=== PATIENT | male | born 1935 | race Two or more races ===

== ENCOUNTER → 2017-06-24 | Outpatient (CLI) | payer MEDICARE | LOC: M PAIN 14:00 | DX: M51.26 Other intervertebral disc displacement, lumbar region (principal); M46.1 Sacroiliitis, not elsewhere classified; G20 Parkinson's disease; Z79.82 Long term (current) use of aspirin; Z79.899 Other long term (current) drug therapy; Z87.891 Personal history of nicotine dependence | CPT/HCPCS: G0463 ==

== ENCOUNTER → 2017-09-23 | Outpatient (CLI) | payer MEDICARE | LOC: M PAIN 09:30 | DX: M51.26 Other intervertebral disc displacement, lumbar region (principal); M46.1 Sacroiliitis, not elsewhere classified; M46.86 Other specified inflammatory spondylopathies, lumbar region; G20 Parkinson's disease; Z79.82 Long term (current) use of aspirin; Z79.899 Other long term (current) drug therapy; Z87.891 Personal history of nicotine dependence | CPT/HCPCS: G0463 ==

== ENCOUNTER → 2018-03-25 | Outpatient (CLI) | payer MEDICARE | LOC: M PAIN 09:00 | DX: M51.26 Other intervertebral disc displacement, lumbar region (principal); M46.1 Sacroiliitis, not elsewhere classified; G20 Parkinson's disease; Z79.82 Long term (current) use of aspirin; Z79.899 Other long term (current) drug therapy; Z87.891 Personal history of nicotine dependence | CPT/HCPCS: G0463 ==

== ENCOUNTER 2019-10-23 16:56 | Emergency (ER) | payer MEDICARE ==
[~2019-10-23] VITALS: Ht 177.8 cm; Wt 85.9 kg
[2019-10-23] MEDS ORDERED: MAGN400T2 PO (17:27)
[2019-10-23] MEDS ORDERED: ASPI81TA85 PO (17:27)
[2019-10-23] MEDS ORDERED: VITAD1000T PO (17:27)
[2019-10-23] MEDS ORDERED: CARB25TA9 (17:27)
[2019-10-23] MEDS ORDERED: MULT1TAB8 PO (17:27)
[2019-10-23] MEDS ORDERED: ATRO1OPD (17:27)
[2019-10-23] MEDS ORDERED: VITA500C24 PO (17:27)
[2019-10-23] MEDS ORDERED: KRIL1CAP10 PO (17:27)
[2019-10-23] MEDS ORDERED: MORPHINE 2 MG/ML 1ML VIAL (J2270) IV ONE (18:00)
[2019-10-23 19:02] LABS: BASO # 0.1 10^3/uL (0.0-0.2); BASO % 0.4 % (0.0-1.0); EOS % 0.3 % (0.0-3.0); HEMATOCRIT 47.3 % (42.0-52.0); HEMOGLOBIN 15.9 g/dl (13.5-17.5); LYMPH # 1.3 10^3/uL (1.5-5.0); LYMPH % 9.3 % (24.0-44.0); MEAN CORPUSCULAR HEMOGLOBIN 31.2 pg (27.0-33.0); MEAN CORPUSCULAR HGB CONC 33.6 g/dl (32.0-36.5); MEAN CORPUSCULAR VOLUME 92.9 fl (80.0-96.0); MONO % 6.9 % (0.0-5.0); NEUTROPHILS # 11.6 10^3/uL (1.5-8.5); NEUTROPHILS % 82.4 % (36.0-66.0); PLATELET COUNT, AUTOMATED 240 10^3/uL (150-450); RED BLOOD COUNT 5.09 10^6/uL (4.30-6.10); WHITE BLOOD COUNT 14.1 10^3/uL (4.0-10.0)
[2019-10-23] MEDS ORDERED: ISOVUE-370 76% 100ML VIAL As Ordered ONE (19:17)
[2019-10-23 19:28] LABS: ALBUMIN 3.7 GM/DL (3.2-5.2); ALT/SGPT 13 U/L (12-78); BILIRUBIN,DIRECT 0.2 MG/DL (0.0-0.2); BILIRUBIN,TOTAL 0.7 MG/DL (0.2-1.0); BLOOD UREA NITROGEN 24 MG/DL (7-18); CALCIUM LEVEL 8.6 MG/DL (8.8-10.2); CARBON DIOXIDE LEVEL 29 MEQ/L (21-32); CHLORIDE LEVEL 106 MEQ/L (98-107); CK-MB VALUE MASS 1.4 NG/ML (<3.6); CPK CREATINE PHOSPHOKINASE 104 U/L (39-308); CREATININE FOR GFR 1.26 MG/DL (0.70-1.30); GLOMERULAR FILTRATION RATE 58.3 (>35); GLUCOSE, FASTING 102 MG/DL (70-100); MB/CK RELATIVE INDEX 1.35 (< OR =4); POTASSIUM SERUM 4.9 MEQ/L (3.5-5.1); SODIUM LEVEL 140 MEQ/L (136-145); TROPONIN I < 0.02 NG/ML (< 0.10)
[2019-10-23 20:00] VITALS: BP 157/72
--- NOTE | 2019-10-24 21:03 | ECGEPIP ---
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
--- NOTE | 2019-10-25 11:27 | REP ---
RIGHT RIB SERIES: FIVE VIEWS INCLUDING PA CHEST. HISTORY: Injury in a fall. Preliminary report is provided at the time of the exam by Dr. Enriquez. FINDINGS: PA chest radiograph shows no evidence of pneumothorax or hydrothorax. Mediastinum is not traumatically widened. The aorta is calcific and slightly tortuous. There are monitoring electrodes. Pulmonary vasculature is not increased. Multiple views of the right ribcage demonstrate a slightly overriding fracture of the distal clavicle on the right. No other shoulder fracture is seen. There is a slightly displaced fracture of the posterior segment of the right 5th rib. A possible nondisplaced 6th rib fracture is seen. No other acute rib fracture is seen. IMPRESSION: Obliquely oriented fracture through the distal clavicle with override. Acute fracture of the right posterior 5th and possibly 6th ribs. Electronically Signed by Ilir Brannon MD 10/25/2019 04:53 P
--- NOTE | 2019-10-25 11:29 | REP ---
REASON FOR EXAM: Trauma. PRIORS: None. Preliminary report given by Dr. Enriquez at the time the exam was performed. Three views of the right shoulder show a comminuted distal clavicular fracture and the fracture involving the posterior aspect of the right 5th rib. The glenohumeral relationship is maintained. IMPRESSION: Clavicular and rib fracture, as described above. Electronically Signed by Morales Valdez DO 10/25/2019 11:55 A
== END 2019-10-23 21:24 | disposition home or self-care (01) ==
LOC: EDBD 16:56 → M ED 16:56
DX: S42.001A Fracture of unspecified part of right clavicle, initial encounter for closed fracture (principal); S22.31XA Fracture of one rib, right side, initial encounter for closed fracture; W18.39XA Other fall on same level, initial encounter; G20 Parkinson's disease; Z79.899 Other long term (current) drug therapy; Z79.82 Long term (current) use of aspirin

== ENCOUNTER → 2019-11-30 | Outpatient (CLI) | payer MEDICARE ==
[~2019-11-30] MED LIST: ASPI81TA85 PO; ATRO1OPD; CARB25TA9; KRIL1CAP10 PO; MAGN400T2 PO; MULT1TAB8 PO; VITA500C24 PO; VITAD1000T PO
--- NOTE | 2019-11-30 11:22 | REP ---
Right upper extremity duplex venous ultrasound: History: Status post a injury right arm and clavicle with swelling. Rule out DVT. Findings: The right internal jugular, axillary, brachial, basilic, and cephalic veins are anechoic and compressible in the left upper extremity. Color flow imaging is homogeneous. Spectral Doppler interrogation is unremarkable. There is no evidence of right upper extremity venous thrombosis. Impression: Negative right upper extremity duplex venous ultrasound. No evidence of venous thrombosis. Electronically Signed by Ilir Brannon MD 11/30/2019 11:14 A
== END ==
LOC: M RAD 07:44
PROVIDERS: ATTEND Orthopaedic Surgery
DX: M79.621 Pain in right upper arm (principal)

== ENCOUNTER 2019-12-04 15:14 | Emergency (ER) | payer MEDICARE ==
[~2019-12-04] VITALS: Ht 177.8 cm; Wt 86.4 kg
--- NOTE | 2019-12-04 16:40 | REP ---
Clinical: Right upper extremity pain and swelling with previous injury. Technique: [place] scale and color Doppler evaluation of the right upper extremity using linear high frequency transducer. Findings: Ultrasound examination of the right upper extremity deep venous structures including jugular, subclavian, axillary, brachial, basilic, and cephalic veins demonstrate normal flow characteristics and wave patterns. There is no evidence for deep venous thrombosis. Impression: No evidence for deep venous thrombosis involving the right upper extremity . Electronically Signed by Gil Enriquez MD 12/04/2019 04:31 P
[2019-12-04 16:49] VITALS: BP 138/70
== END 2019-12-04 17:06 | disposition home or self-care (01) ==
LOC: M ED 15:14
DX: M79.601 Pain in right arm (principal); R22.31 Localized swelling, mass and lump, right upper limb

== ENCOUNTER → 2020-10-09 | Outpatient (REF) | payer MEDICARE ==
[~2020-10-09] MED LIST changes: +ASPI-161 PO; -ASPI81TA85 PO; +ASPI81TA86 PO; -ATRO1OPD; +ATRO1OPD SL; -CARB25TA9; +CARB25TA9 PO; +D31000TA2 PO; +MIDO5TA PO; +MIRA3350 PO; +REFR1GEL OU; -VITAD1000T PO
[2020-10-09 12:19] LABS: BASO # 0.1 10^3/uL (0.0-0.2); BASO % 0.9 % (0.0-1.0); EOS # 0.2 10^3/uL (0.0-0.5); EOS % 1.7 % (0.0-3.0); HEMATOCRIT 45.1 % (42.0-52.0); HEMOGLOBIN 14.4 g/dl (13.5-17.5); LYMPH # 1.7 10^3/uL (1.5-5.0); LYMPH % 19.7 % (24.0-44.0); MEAN CORPUSCULAR HEMOGLOBIN 30.4 pg (27.0-33.0); MEAN CORPUSCULAR HGB CONC 31.9 g/dl (32.0-36.5); MEAN CORPUSCULAR VOLUME 95.1 fl (80.0-96.0); MONO # 0.8 10^3/uL (0.0-0.8); MONO % 8.8 % (2.0-8.0); NEUTROPHILS # 5.9 10^3/uL (1.5-8.5); NEUTROPHILS % 68.2 % (36.0-66.0); PLATELET COUNT, AUTOMATED 287 10^3/uL (150-450); RED BLOOD COUNT 4.74 10^6/uL (4.30-6.10); WHITE BLOOD COUNT 8.7 10^3/uL (4.0-10.0)
[2020-10-09 16:23] LABS: ALBUMIN 3.8 GM/DL (3.2-5.2); ALT/SGPT 19 U/L (12-78); BLOOD UREA NITROGEN 31 MG/DL (7-18); CALCIUM LEVEL 9.6 MG/DL (8.8-10.2); CARBON DIOXIDE LEVEL 30 MEQ/L (21-32); CHLORIDE LEVEL 108 MEQ/L (98-107); CHOLESTEROL LEVEL 211 MG/DL (<200); CHOLESTEROL RISK RATIO 3.981 (<5); CREATININE FOR GFR 1.12 MG/DL (0.70-1.30); GLOMERULAR FILTRATION RATE > 60.0 (>35); GLUCOSE, FASTING 97 MG/DL (70-100); HDL CHOLESTEROL 53 MG/DL (>40); LDL CHOLESTEROL 139 MG/DL (<100); MAGNESIUM LEVEL 2.5 MG/DL (1.8-2.4); NON-HDL-C 158 MG/DL; POTASSIUM SERUM 4.7 MEQ/L (3.5-5.1); SODIUM LEVEL 141 MEQ/L (136-145); TOTAL PROTEIN 7.1 GM/DL (6.4-8.2); TRIGLYCERIDES LEVEL 96 MG/DL (<150)
== END ==
LOC: M LABDRAWC 11:36
PROVIDERS: ATTEND Internal Medicine
DX: I95.9 Hypotension, unspecified (principal); E78.00 Pure hypercholesterolemia, unspecified

== ENCOUNTER 2020-10-10 16:11 | Inpatient (IN) | payer MEDICARE ==
[~2020-10-10] VITALS: Ht 177.8 cm; Wt 72.7 kg
[~2020-10-10 16:11] MED LIST changes: -ASPI-161 PO; -MIDO5TA PO; -MIRA3350 PO; -REFR1GEL OU
[2020-10-10 17:57] LABS: BASO # 0.1 10^3/uL (0.0-0.2); BASO % 0.7 % (0.0-1.0); EOS # 0.1 10^3/uL (0.0-0.5); EOS % 1.2 % (0.0-3.0); HEMATOCRIT 43.2 % (42.0-52.0); LYMPH # 1.8 10^3/uL (1.5-5.0); LYMPH % 17.6 % (24.0-44.0); MEAN CORPUSCULAR HEMOGLOBIN 30.5 pg (27.0-33.0); MEAN CORPUSCULAR HGB CONC 32.4 g/dl (32.0-36.5); MEAN CORPUSCULAR VOLUME 94.1 fl (80.0-96.0); MONO # 0.8 10^3/uL (0.0-0.8); MONO % 7.5 % (2.0-8.0); NEUTROPHILS # 7.6 10^3/uL (1.5-8.5); NEUTROPHILS % 72.4 % (36.0-66.0); PLATELET COUNT, AUTOMATED 279 10^3/uL (150-450); RED BLOOD COUNT 4.59 10^6/uL (4.30-6.10); WHITE BLOOD COUNT 10.4 10^3/uL (4.0-10.0)
[2020-10-10 18:01] LABS: BLOOD UREA NITROGEN 32 MG/DL (7-18); CALCIUM LEVEL 9.3 MG/DL (8.8-10.2); CARBON DIOXIDE LEVEL 28 MEQ/L (21-32); CHLORIDE LEVEL 108 MEQ/L (98-107); CREATININE FOR GFR 0.99 MG/DL (0.70-1.30); GLOMERULAR FILTRATION RATE > 60.0 (>35); GLUCOSE, FASTING 86 MG/DL (70-100); POTASSIUM SERUM 4.8 MEQ/L (3.5-5.1); SODIUM LEVEL 140 MEQ/L (136-145)
[2020-10-10 18:18] LABS: RSV AMPLIFICATION NEGATIVE (NEGATIVE)
--- NOTE | 2020-10-10 18:26 | REP ---
INDICATION: trauma. COMPARISON: None TECHNIQUE: AP and cross-table lateral views FINDINGS: Note is again made of an impacted right femoral neck fracture seen on the two-view right hip exam obtained earlier today IMPRESSION: Known impacted right femoral neck fracture <Electronically signed by Morales Valdez > 10/10/20 [id number]
--- NOTE | 2020-10-10 18:27 | REP ---
INDICATION: trauma. COMPARISON: None TECHNIQUE: AP pelvis FINDINGS: There is an impacted right femoral neck fracture. Degenerative changes are seen involving each hip. There are no additional fractures. IMPRESSION: As above <Electronically signed by Morales Valdez > 10/10/20 [id number]
--- NOTE | 2020-10-10 18:28 | REP ---
INDICATION: trauma. TECHNIQUE: Four views FINDINGS: There is no acute fracture, dislocation, subluxation, or joint effusion. IMPRESSION: As above. <Electronically signed by Morales Valdez > 10/10/20 [id number]
--- NOTE | 2020-10-10 18:29 | REP ---
INDICATION: trauma. COMPARISON: None TECHNIQUE: AP supine FINDINGS: The cardiomediastinal silhouette is within normal limits. There is a discoid opacity in the left CP angle. There is a calcified granuloma in the left lower lobe. Lung quiñonez are otherwise clear. Pleural angles are sharp. The osseous structures are intact. IMPRESSION: Discoid opacity in the left lower lobe likely subsegmental atelectatic change. There is no evidence of acute cardiopulmonary disease. <Electronically signed by Morales Valdez > 10/10/20 [id number]
--- NOTE | 2020-10-10 18:30 | REP ---
INDICATION: trauma. COMPARISON: None. TECHNIQUE: Two limited views. The lateral view does not include the olecranon process FINDINGS: No acute fracture or destructive osseous lesion. IMPRESSION: Negative limited exam <Electronically signed by Morales Valdez > 10/10/20 [id number]
[2020-10-10] MEDS ORDERED: REFR1GEL OU (18:53)
[2020-10-10] MEDS ORDERED: MIRA3350 PO (18:53)
[2020-10-10] MEDS ORDERED: ASPI-161 PO (18:53)
[2020-10-10] MEDS ORDERED: MIDO5TA PO (18:53)
--- NOTE | 2020-10-10 21:13 | HPEPDOC ---
[facility] Medical History & Physical Date of Admission October 10, 2020 Date of Service: October 10, 2020 History and Physical CHIEF COMPLAINT: Fall HISTORY OF PRESENT ILLNESS: 85-year-old male history of Parkinson's who had a mechanical fall at home. Tells me he was walking in the kitchen and stubbed his toe and stumbled and fell next to the kitchen counter. This happened on September 29. He's been having a limp and hip pain since. He went to his PCP office who did an x-ray confirming a right femoral neck fracture. PCP sent patient to the emergency department. Patient tells me his pain is only on ambulation he is pain-free while lying in bed. He denies any other problems tells me doesn't have any chest pain or trouble breathing. Tells me usually uses a cane or walker at home but during the fall he was not using either was leaning on the counter. She'll be admitted for surgical evaluation. PAST MEDICAL/SURGICAL HISTORY: Parkinson's disease Bilateral cataract surgery 2011 and 2012 [place] sent pin in left ankle SOCIAL HISTORY: Endorses alcohol use but only socially once or twice a month Denies tobacco use. He is a former smoker Denies illicit drug use Uses a cane and a walker FAMILY HISTORY: Reviewed and none contributory to this admission Brother also has Parkinson's ALLERGIES: Please see below. REVIEW OF SYSTEMS: 10 point review of systems complete all negative otherwise stated in HPI HOME MEDICATIONS: Please see below. PHYSICAL EXAMINATION: Constitutional: Awake and alert, in no apparent distress ENT: Sclera are clear. Mucosa is moist. Respiratory: Lungs CTA bilaterally. No respiratory distress. Cardiovascular: RRR S1 and S2 are normal, no murmur Gastrointestinal: Abdomen is soft, non distended, non tender, BS present. Musculoskeletal: No lower extremity edema. Unable to move his hips due to pain. Neurologic: speech is slow and muffled but appropriate Mental Status: A&O x3 LABORATORY DATA: See below. IMAGING: See chart X-ray showing impacted right femoral neck fracture MICROBIOLOGY: Please see below. ASSESSMENT/PLAN 85-year-old male history of Parkinson's who had a mechanical fall at home which resulted in an impacted right femoral neck fracture will be admitted for pain co ntrol and surgical evaluation in the morning. # impacted right femoral neck fracture: Orthopedic surgery Dr. Rodriguez consulted will see the patient in the morning. Pain control with Tylenol and IV morphine for breakthrough pain. PT/OT eval. nothing by mouth for possible surgery tomorrow. I'll precautions. # Parkinson's: Continue home medications. # History of hypertension: Continue home Midodrine TID. # On ASA: Takes ASA unsure why, denies hx of CVA/CAD, might have to Fu with PCP to see if he needs it, will continue it for now. # DVT prophylaxis: Heparin A [facility] Vital Signs Vital Signs Date Time Temp Pulse Resp B/P (MAP) Pulse Ox O2 Delivery O2 Flow Rate FiO2 10/10/20 20:45 65 16 144/71 (95) 93 Room Air 10/10/20 16:18 98.2 Laboratory Data Labs 24H Laboratory Tests 2 10/10/20 17:08: Immature Granulocyte % (Auto) 0.6, Neutrophils (%) (Auto) 72.4H, Lymphocytes (%) (Auto) 17.6L, Monocytes (%) (Auto) 7.5, Eosinophils (%) (Auto) 1.2, Basophils (%) (Auto) 0.7, Neutrophils # (Auto) 7.6, Lymphocytes # (Auto) 1.8, Monocytes # (Auto) 0.8, Eosinophils # (Auto) 0.1, Basophils # (Auto) 0.1, Nucleated Red Blood Cells % (auto) 0.0, Anion Gap 4L, Glomerular Filtration Rate > 60.0, Calcium Level 9.3 10/10/20 17:18: Coronavirus (COVID-19)(PCR) NEGATIVE, Influenza Type A (RT-PCR) NEGATIVE, Influenza Type B (RT-PCR) NEGATIVE, Respiratory Syncytial Virus (PCR) NEGATIVE CBC/BMP Laboratory Tests 10/10/20 17:08 Home Medications Scheduled Aspirin (Aspirin EC) 81 Mg Tablet.dr, 81 MG PO DAILY Carbidopa/Levodopa (Carbidopa-Levodopa 25-100 Tab) 1 Each Tablet, 2 TAB PO TID TAKES AT 0900, 1500, AND 2100 Cholecalciferol (Vitamin D3) (Vitamin D3) 1,000 Unit Tablet, 2,000 UNITS PO DAILY Krill/Om-3/Dha/Epa/Phospho/Ast (Megared [place]-3 Krill Oil Sfgl) 1 Each Capsule, 1 CAP PO DAILY Midodrine HCl (Midodrine HCl) 5 Mg Tablet, 5 MG PO TID Scheduled PRN Atropine Sulfate (Atropine Sulfate) 1% 2ML Drops, 1-2 DROP SL DAILY PRN for EXCESSIVE SECRETIONS Carboxymethylcellulos/Glycerin (Refresh Optive Gel Eye Drops) 10 Ml Drops.gel, 1 DROP OU QID PRN for DRY EYES Polyethylene Glycol 3350 (Miralax) 119 Gm Powder, 17 GM PO DAILY PRN for CONSTIPATION Allergies Coded Allergies: No Known Allergies (Unverified , 10/23/19) A-FIB/CHADSVASC A-FIB History Current/History of A-Fib/PAF?: No YOUSEMARIZOL Castro MD October 10, 2020 21:13
[2020-10-10] MEDS ORDERED: MOM 30ML SUSPENSION UDC PO PRN (21:15)
[2020-10-10] MEDS ORDERED: ACETAMINOPHEN TAB 650MG DOSE (2X325MG) PO PRN (21:15)
[2020-10-10] MEDS ORDERED: MAALOX 30 ML SUSP *UDC PO PRN (21:15)
[2020-10-10] MEDS ORDERED: MORPHINE 2 MG/ML 1ML VIAL (J2270) IV PRN (21:20)
[2020-10-10] MEDS: SINEMET 25-100 MG TAB PO SCH (22:33)
[2020-10-10 23:48] VITALS: BP 143/75
[2020-10-11 06:00] VITALS: BP 142/74
[2020-10-11 06:07] LABS: HEMATOCRIT 42.8 % (42.0-52.0); MEAN CORPUSCULAR HEMOGLOBIN 30.6 pg (27.0-33.0); MEAN CORPUSCULAR HGB CONC 32.7 g/dl (32.0-36.5); MEAN CORPUSCULAR VOLUME 93.4 fl (80.0-96.0); PLATELET COUNT, AUTOMATED 281 10^3/uL (150-450); RED BLOOD COUNT 4.58 10^6/uL (4.30-6.10); WHITE BLOOD COUNT 8.9 10^3/uL (4.0-10.0)
[2020-10-11 06:38] LABS: ALBUMIN 3.6 GM/DL (3.2-5.2); ALT/SGPT 9 U/L (12-78); BILIRUBIN,TOTAL 1.5 MG/DL (0.2-1.0); BLOOD UREA NITROGEN 27 MG/DL (7-18); CALCIUM LEVEL 9.7 MG/DL (8.8-10.2); CARBON DIOXIDE LEVEL 28 MEQ/L (21-32); CHLORIDE LEVEL 106 MEQ/L (98-107); CREATININE FOR GFR 0.93 MG/DL (0.70-1.30); GLOMERULAR FILTRATION RATE > 60.0 (>35); GLUCOSE, FASTING 87 MG/DL (70-100); MAGNESIUM LEVEL 2.6 MG/DL (1.8-2.4); POTASSIUM SERUM 4.3 MEQ/L (3.5-5.1); SODIUM LEVEL 140 MEQ/L (136-145); TOTAL PROTEIN 6.8 GM/DL (6.4-8.2)
[2020-10-11] MEDS: MIDODRINE 5 MG TAB PO SCH ×2 (08:00→12:20)
--- NOTE | 2020-10-11 08:11 | CR.PDOC ---
General Date of Consultation: October 11, 2020 Consultation CHIEF COMPLAINT: Limp and right hip pain secondary to fall on September 29 HISTORY OF PRESENT ILLNESS: The patient was referred with regards to an impacted right hip fracture. He is in 85-year-old male with a history of Parkinson's who had a mechanical fall at home.. He was reportedly walking in the kitchen and stubbed his toe and stumbled and fell next to the kitchen counter. This happened on September 29.. He reports that his had noticed that he had been limping since that fall. On report, he denies any pain in the right hip with mobility or weightbearing. Of note, he utilizes a cane or a walker typically. He lives at home with his . He states that his brother also help so with things around the home. He went to his PCP office who did an x-ray confirming a right femoral neck fracture. PCP sent patient to the emergency department. The patient denies any pain, but rather states that the limp was Y he had had the x-ray imaging done. PAST MEDICAL/SURGICAL HISTORY: Parkinson's disease Bilateral cataract surgery 2011 and 2013 [place] sent pin in left ankle SOCIAL HISTORY: Endorses alcohol use but only socially once or twice a month Denies tobacco use. He is a former smoker Denies illicit drug use Uses a cane and a walker FAMILY HISTORY: Reviewed and none contributory to this admission Brother also has Parkinson's ALLERGIES: Please see below. REVIEW OF SYSTEMS: Negative except for that mentioned in the HPI HOME MEDICATIONS: Please see below. PHYSICAL EXAMINATION: Constitutional: Awake and alert, in no apparent distress. The patient is slightly sleepy, as it is early in the morning, and I have awoken him. Cardiovascular: Palpable palpable posterior tibial pulse, right leg Musculoskeletal: No lower extremity edema. The patient is moving his right hip. He is flexing his hip up and bending his knee in bed on his own. Grossly, there is some shortening of the right lower extremity by a centimeter or so. There is no pain with logroll of the right hip. There is no pain when I flex the patient's hip up and do some light axial loading. There is no pain in the right hip with internal and external rotation of about 10-15. Neurologic: speech is slow and muffled but appropriate Mental Status: A&O x3 X-ray: X-ray imaging was independently reviewed by myself today. This demonstrated evidence of a right hip femoral neck fracture with impaction within the femoral head. ASSESSMENT/PLAN: 1. The patient is almost 2 weeks out from a right hip fracture secondary to mechanical fall. On x-ray imaging on AP and lateral views, the femoral neck appears to be well impacted into the femoral head. The patient has been mobilizing weightbearing as tolerated on the right lower extremity for approximately 2 weeks now. He denies any pain with mobility and he denies any pain with range of motion and physical examination while in bed today. I would like to get a CT scan this morning to evaluate the hip for better idea of how impacted the fracture is. There may be consideration for nonoperative treatment, weightbearing as tolerated as it has been approximately 2 weeks and the fracture. They actually be in a healing position. There would of course be risks associated with loss of position or avascular necrosis of the femoral head. If there is evidence that the fracture is stable and in good position. Then, given the patient's medical comorbidities, it may be worth a trial of nonoperative treatment. I will discuss this with the patient once I have the results of the CT scan. For now he will remain nothing by mouth. This document contains text that was generated through computerized voice- recognition software. Despite it being proofread, undetected computer-generated errors may exist. Please contact our office at [phone] if any clarification or correction is required. Addendum: CT scan: CT scan was independently ordered and reviewed by myself this morning. This demonstrated that the femoral head had the femoral neck well impacted into it. This was after logroll as well as hip flexion and internal/external rotation was carried out. On examining the patient. The fracture appears to be relatively stable. I had a discussion with the patient and his who is at the bedside. They're in agreement with conservative treatment. The patient will be able to eat and drink a soft diet. He will have physical therapy evaluate him for discharge home. He will be weightbearing as tolerated. I will see him for follow-up in the clinic in 2 weeks with repeat x-ray imaging. I answered their questions to their satisfaction. They're in agreement with the treatment plan. They are aware that there could be a loss of position or potentially avascular necrosis of the femoral head, but at this time given the patient's other medical comorbidities. They're in agreement that conservative treatment is the best option for him, currently. Vital Signs/I&O Vital Signs Date Time Temp Pulse Resp B/P (MAP) Pulse Ox O2 Delivery O2 Flow Rate FiO2 10/11/20 06:52 18 Room Air 10/11/20 06:00 97.4 68 142/74 (96) 94 I&O- Last 24 Hours up to 6 AM 10/11/20 06:00 Intake Total 0 ml Output Total 250 ml Balance -250 ml Laboratory Data Labs 24H Laboratory Tests 2 10/10/20 17:08: Immature Granulocyte % (Auto) 0.6, Neutrophils (%) (Auto) 72.4H, Lymphocytes (%) (Auto) 17.6L, Monocytes (%) (Auto) 7.5, Eosinophils (%) (Auto) 1.2, Basophils (%) (Auto) 0.7, Neutrophils # (Auto) 7.6, Lymphocytes # (Auto) 1.8, Monocytes # (Auto) 0.8, Eosinophils # (Auto) 0.1, Basophils # (Auto) 0.1, Nucleated Red Blood Cells % (auto) 0.0, Anion Gap 4L, Glomerular Filtration Rate > 60.0, Calcium Level 9.3 10/10/20 17:18: Coronavirus (COVID-19)(PCR) NEGATIVE, Influenza Type A (RT-PCR) NEGATIVE, Influenza Type B (RT-PCR) NEGATIVE, Respiratory Syncytial Virus (PCR) NEGATIVE 10/11/20 05:27: Nucleated Red Blood Cells % (auto) 0.0, Anion Gap 6L, Glomerular Filtration Rate > 60.0, Calcium Level 9.7, Magnesium Level 2.6H, Total Bilirubin 1.5H, Aspartate Amino Transf (AST/SGOT) 13, Alanine Aminotransferase (ALT/SGPT) 9L, Alkaline Phosphatase 85, Total Protein 6.8, Albumin 3.6, Albumin/Globulin Ratio 1.1 CBC/BMP Laboratory Tests 10/10/20 17:08 10/11/20 05:27 Allergies Coded Allergies: No Known Allergies (Unverified , 10/23/19) Home Medications Scheduled Aspirin (Aspirin EC) 81 Mg Tablet.dr, 81 MG PO DAILY, (Reported) Carbidopa/Levodopa (Carbidopa-Levodopa 25-100 Tab) 1 Each Tablet, 2 TAB PO TID, (Reported) TAKES AT 0900, 1500, AND 2100 Cholecalciferol (Vitamin D3) (Vitamin D3) 1,000 Unit Tablet, 2,000 UNITS PO DAILY, (Reported) Krill/Om-3/Dha/Epa/Phospho/Ast (Megared [place]-3 Krill Oil Sfgl) 1 Each Capsule, 1 CAP PO DAILY, (Reported) Midodrine HCl (Midodrine HCl) 5 Mg Tablet, 5 MG PO TID, (Reported) Scheduled PRN Atropine Sulfate (Atropine Sulfate) 1% 2ML Drops, 1-2 DROP SL DAILY PRN for EXCESSIVE SECRETIONS, (Reported) Carboxymethylcellulos/Glycerin (Refresh Optive Gel Eye Drops) 10 Ml Drops.gel, 1 DROP OU QID PRN for DRY EYES, (Reported) Polyethylene Glycol 3350 (Miralax) 119 Gm Powder, 17 GM PO DAILY PRN for CONSTIPATION, (Reported) SHANTE SEAY MD October 11, 2020 08:11
--- NOTE | 2020-10-11 08:24 | REP ---
INDICATION: assess right hip fracture bone quality and impaction. COMPARISON: Comparison radiographs are from October 10, 2020 and October 26, 2007.. TECHNIQUE: Helical scanning is acquired and 3 mm axial images are generated. Coronal and sagittal MPR images are generated. FINDINGS: Digital combination machine tool setter view and the recent radiographs demonstrate impacted fracture of the femoral neck on the right. Axial CT images confirm this. There is diffuse osteopenia but no bony destructive lesion is appreciated. No other displacement is seen at the femoral neck fracture. There is mild chondrocalcinosis and there is osteoarthritic acetabular spurring. There is also some tendon insertion site spurring on the greater trochanter. The right hemipelvis is intact. No pelvic fracture is appreciated. There is some vascular calcification. IMPRESSION: Impacted otherwise nondisplaced femoral neck fracture on the right. Diffuse osteopenia. No bony destructive lesion. Mild osteoarthritis right hip. <Electronically signed by Zak Brannon > 10/11/20 [id number]
[2020-10-11] MEDS ORDERED: D5W/0.9% SODIUM CHLORIDE 1,000 ML IV SCH (08:45)
[2020-10-11] MEDS ORDERED: DOCUSATE SODIUM 100MG CAPSULE PO SCH (09:00)
[2020-10-11] MEDS ORDERED: ASPIRIN 81MG ENTERIC TABLET PO SCH (09:00)
[2020-10-11] MEDS ORDERED: HEPARIN SOD (PORCINE) 5000UNITS/ML 1ML VIAL/SYRINGE SC SCH (09:00)
[2020-10-11] MEDS: SINEMET 25-100 MG TAB PO SCH (09:00)
[2020-10-11] MEDS ORDERED: HALOPERIDOL 5MG/ML VIAL (J1630 PER 1) IV ONE (11:00)
--- NOTE | 2020-10-11 11:14 | IPNPDOC ---
Subjective Date Seen The patient was seen on 10/11/20. Subjective Chief Complaint/HPI Patient getting agitated and trying to get out of bed. Says he wants to get dressed and go home. Objective Physical Examination General Exam: Positive: Alert, No Acute Distress, Other (oriented x 2) Neck Exam: Positive: Supple; Negative: JVD, thyromegaly Chest Exam: Positive: Clear to auscultation, Normal air movement Heart Exam: Positive: Rate Normal, Regular Rhythm, Normal S1, Normal S2; Negative: Murmurs, Rubs Abdomen Exam: Positive: Normal bowel sounds, Soft; Negative: Tenderness, Hepatospenomegaly Extremity Exam: Positive: Tenderness (right external hip); Negative: Clubbing, Cyanosis, Edema, Swelling, Other Assessment /Plan Assessment 85-year-old male history of Parkinson's dis, orthostatic hypotension who had a mechanical fall at home 2 weeks ago which resulted in an impacted right femoral neck fracture. Impacted right femoral neck fracture to be decided if needs surgery or not depending on CT scan that was done. will keep NPO. IVF. Medical optimization At present patient is medically optimized for orthopedic procedure. Confusion /Agitation likely acute delirium form hospitalization, morphine will give seroquel. Parkinson's with orthostatic hypotension: Continue home medications. sinemet, midodrine, atropine. Plan/VTE VTE Prophylaxis Ordered?: Yes VS, I&O, 24H, Fishbone Vital Signs/I&O Vital Signs Date Time Temp Pulse Resp B/P (MAP) Pulse Ox O2 Delivery O2 Flow Rate FiO2 10/11/20 06:52 18 Room Air 10/11/20 06:00 97.4 68 142/74 (96) 94 I&O- Last 24 Hours up to 6 AM 10/11/20 06:00 Intake Total 0 ml Output Total 250 ml Balance -250 ml Laboratory Data 24H LABS Laboratory Tests 2 10/10/20 17:08: Immature Granulocyte % (Auto) 0.6, Neutrophils (%) (Auto) 72.4H, Lymphocytes (%) (Auto) 17.6L, Monocytes (%) (Auto) 7.5, Eosinophils (%) (Auto) 1.2, Basophils (%) (Auto) 0.7, Neutrophils # (Auto) 7.6, Lymphocytes # (Auto) 1.8, Monocytes # (Auto) 0.8, Eosinophils # (Auto) 0.1, Basophils # (Auto) 0.1, Nucleated Red Blood Cells % (auto) 0.0, Anion Gap 4L, Glomerular Filtration Rate > 60.0, Calcium Level 9.3 10/10/20 17:18: Coronavirus (COVID-19)(PCR) NEGATIVE, Influenza Type A (RT-PCR) NEGATIVE, Influenza Type B (RT-PCR) NEGATIVE, Respiratory Syncytial Virus (PCR) NEGATIVE 10/11/20 05:27: Nucleated Red Blood Cells % (auto) 0.0, Anion Gap 6L, Glomerular Filtration Rate > 60.0, Calcium Level 9.7, Magnesium Level 2.6H, Total Bilirubin 1.5H, Aspartate Amino Transf (AST/SGOT) 13, Alanine Aminotransferase (ALT/SGPT) 9L, Alkaline Phosphatase 85, Total Protein 6.8, Albumin 3.6, Albumin/Globulin Ratio 1.1 CBC/BMP Laboratory Tests 10/10/20 17:08 10/11/20 05:27 LATONIA RIVAS MD October 11, 2020 11:14
[2020-10-11 14:00] VITALS: BP 142/77
--- NOTE | 2020-10-11 18:37 | DS.PDOC ---
Discharge Summary General Date of Admission October 10, 2020 at 21:13 Date of Discharge 10/11/20 Discharge Summary PROCEDURES PERFORMED DURING STAY: [None]. DISCHARGE DIAGNOSES: Impacted right femoral neck fracture to be managed conservatively. Parkinson disease Orthostatic hypotension. COMPLICATIONS/CHIEF COMPLAINT: Fracture Of Femoral Neck Right. HOSPITAL COURSE: 85-year-old male history of Parkinson's dis, orthostatic hypotension who had a mechanical fall at home 2 weeks ago . After that he was walking with a limp so went to see the PMD who ordered an xray and found to have an impacted right femoral neck fracture. Impacted right femoral neck fracture Patient does not have any pain even with manipulation. CT of the extremity showed Impacted fracture with no displacemetn after moving the limb ortho Dr Rodriguez felt this could be managed conservatively without surgery which was also the Patient and 's wish. Parkinson's with orthostatic hypotension: Continue home medications. sinemet, midodrine, atropine. DISCHARGE MEDICATIONS: Please see below. ALLERGIES: Please see below. PHYSICAL EXAMINATION ON DISCHARGE: VITAL SIGNS: Please see below. General Exam: Positive: Alert, No Acute Distress, Other (oriented x 2) Neck Exam: Positive: Supple; Negative: JVD, thyromegaly Chest Exam: Positive: Clear to auscultation, Normal air movement Heart Exam: Positive: Rate Normal, Regular Rhythm, Normal S1, Normal S2; Negative: Murmurs, Rubs Abdomen Exam: Positive: Normal bowel sounds, Soft; Negative: Tenderness, Hepatosplenomegaly Extremity Exam: Positive: Tenderness (right external hip); Negative: Clubbing, Cyanosis, Edema, Swelling, Other LABORATORY DATA: Please see below. ACTIVITY: [As tolerated]. DIET: As tolerated DISPOSITION: 01 Home, Self-Care. DISCHARGE INSTRUCTIONS: Dr Rodriguez in 2 weeks with xray. weight bearing as tolerated DISCHARGE CONDITION: [Stable]. TIME SPENT ON DISCHARGE: 35 minutes. Vital Signs/I&Os Vital Signs Date Time Temp Pulse Resp B/P (MAP) Pulse Ox O2 Delivery O2 Flow Rate FiO2 10/11/20 14:00 98.9 75 16 142/77 (98) 92 Room Air I&O- Last 24 Hours up to 6 AM 10/11/20 07:00 Intake Total 0 ml Output Total 250 ml Balance -250 ml Laboratory Data Labs 24H Laboratory Tests 2 10/11/20 05:27: Nucleated Red Blood Cells % (auto) 0.0, Anion Gap 6L, Glomerular Filtration Rate > 60.0, Calcium Level 9.7, Magnesium Level 2.6H, Total Bilirubin 1.5H, Aspartate Amino Transf (AST/SGOT) 13, Alanine Aminotransferase (ALT/SGPT) 9L, Alkaline Phosphatase 85, Total Protein 6.8, Albumin 3.6, Albumin/Globulin Ratio 1.1 CBC/BMP Laboratory Tests 10/11/20 05:27 Discharge Medications Scheduled Aspirin (Aspirin EC) 81 Mg Tablet.dr, 81 MG PO DAILY, (Reported) Carbidopa/Levodopa (Carbidopa-Levodopa 25-100 Tab) 1 Each Tablet, 2 TAB PO TID, (Reported) TAKES AT 0900, 1500, AND 2100 Cholecalciferol (Vitamin D3) (Vitamin D3) 1,000 Unit Tablet, 2,000 UNITS PO DAILY, (Reported) Krill/Om-3/Dha/Epa/Phospho/Ast (Megared [place]-3 Krill Oil Sfgl) 1 Each Capsule, 1 CAP PO DAILY, (Reported) Midodrine HCl (Midodrine HCl) 5 Mg Tablet, 5 MG PO TID, (Reported) Scheduled PRN Atropine Sulfate (Atropine Sulfate) 1% 2ML Drops, 1-2 DROP SL DAILY PRN for EXCESSIVE SECRETIONS, (Reported) Carboxymethylcellulos/Glycerin (Refresh Optive Gel Eye Drops) 10 Ml Drops.gel, 1 DROP OU QID PRN for DRY EYES, (Reported) Polyethylene Glycol 3350 (Miralax) 119 Gm Powder, 17 GM PO DAILY PRN for CONSTIPATION, (Reported) Allergies Coded Allergies: No Known Allergies (Unverified , 10/23/19) LATONIA RIVAS MD October 11, 2020 18:37
--- NOTE | 2020-10-11 20:18 | ECGEPIP ---
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
[2020-10-11] MEDS ORDERED: QUEtiapine FUMARATE 25 MG TAB PO SCH (21:00)
== END 2020-10-11 15:15 | disposition home or self-care (01) | DRG 536 ==
LOC: M ED 16:11 → M ED INP 21:13 → ENRESERV 22:21 → M MS5PR 23:50
PROVIDERS: ADMIT Family Medicine; ATTEND Internal Medicine Nephrology
DX: S72.001A Fracture of unspecified part of neck of right femur, initial encounter for closed fracture (principal); G20 Parkinson's disease; I95.1 Orthostatic hypotension; W18.30XA Fall on same level, unspecified, initial encounter; Y92.010 Kitchen of single-family (private) house as the place of occurrence of the external cause; Z79.899 Other long term (current) drug therapy; Z98.41 Cataract extraction status, right eye; Z98.42 Cataract extraction status, left eye; Z87.891 Personal history of nicotine dependence; I10 Essential (primary) hypertension; Z79.82 Long term (current) use of aspirin; R41.0 Disorientation, unspecified

== ENCOUNTER → 2020-10-10 | Outpatient (CLI) | payer MEDICARE ==
--- NOTE | 2020-10-10 15:15 | REP ---
INDICATION: PAIN. COMPARISON: None TECHNIQUE: Two views FINDINGS: there is evidence of an impacted fracture of the right femoral neck. IMPRESSION: Impacted right femoral neck fracture. <Electronically signed by Morales Valdez > 10/10/20 [id number]
== END ==
LOC: M WUC 14:34
PROVIDERS: ATTEND Physician Assistant Medical
DX: M25.551 Pain in right hip (principal)

== ENCOUNTER → 2020-10-25 | Outpatient (CLI) | payer MEDICARE ==
[~2020-10-25] MED LIST changes: +ASPI-161 PO; +MIDO5TA PO; +MIRA3350 PO; +REFR1GEL OU
--- NOTE | 2020-10-25 14:20 | REP ---
INDICATION: HISTORY OF FX. F/U FX. COMPARISON: 10/10/2020 TECHNIQUE: AP and frog-lateral views FINDINGS: The previously described right femoral neck fracture does not appear to be significantly changed compared to the prior exam. There is no evidence of a new fracture since the last exam. IMPRESSION: No significant change as described above. <Electronically signed by Morales Valdez > 10/25/20 [id number]
== END ==
LOC: M SOG 13:29
PROVIDERS: ATTEND Orthopaedic Surgery Adult Reconstructive Orthopaedic Surgery
DX: M25.551 Pain in right hip (principal)

== ENCOUNTER → 2020-11-17 | Outpatient (CLI) | payer MEDICARE ==
--- NOTE | 2020-11-17 18:21 | REP ---
INDICATION: PAIN IN RT HIP. COMPARISON: 10/10/2020. TECHNIQUE: AP view pelvis excludes the iliac crests. FINDINGS: No fracture or dislocation is seen. There is mild joint space narrowing, subchondral sclerosis and spurring at both hip joints. Impacted fracture of the right femoral neck is again seen. The right lower extremity is measuring approximately 3 mm shorter than the left. IMPRESSION: Mild degenerative changes. Right lower extremity is measuring approximately 3 mm shorter than the left. <Electronically signed by Fuad Pastrana > 11/17/20 [id number]
--- NOTE | 2020-11-17 18:22 | REP ---
INDICATION: PAIN IN RT HIP. COMPARISON: 10/25/2020. TECHNIQUE: Two views right hip. FINDINGS: Impacted right femoral neck fracture is again seen unchanged. There are again mild degenerative changes seen at the hip joint with mild joint space narrowing, subchondral sclerosis and spurring. There adjacent vascular calcifications. There phleboliths in the pelvis. IMPRESSION: Stable exam. <Electronically signed by Fuad Pastrana > 11/17/20 [id number]
== END ==
LOC: M SOG 11:32
PROVIDERS: ATTEND Orthopaedic Surgery Adult Reconstructive Orthopaedic Surgery
DX: M25.551 Pain in right hip (principal); M16.11 Unilateral primary osteoarthritis, right hip

== ENCOUNTER → 2020-12-13 | Outpatient (REF) | payer MEDICARE ==
[2020-12-13 12:01] LABS: BASO # 0.1 10^3/uL (0.0-0.2); BASO % 0.7 % (0.0-1.0); EOS # 0.3 10^3/uL (0.0-0.5); EOS % 3.1 % (0.0-3.0); HEMATOCRIT 42.9 % (42.0-52.0); HEMOGLOBIN 13.8 g/dl (13.5-17.5); LYMPH # 2.3 10^3/uL (1.5-5.0); LYMPH % 26.7 % (24.0-44.0); MEAN CORPUSCULAR HGB CONC 32.2 g/dl (32.0-36.5); MEAN CORPUSCULAR VOLUME 96.4 fl (80.0-96.0); MONO # 0.7 10^3/uL (0.0-0.8); MONO % 8.7 % (2.0-8.0); NEUTROPHILS # 5.1 10^3/uL (1.5-8.5); NEUTROPHILS % 60.4 % (36.0-66.0); PLATELET COUNT, AUTOMATED 244 10^3/uL (150-450); RED BLOOD COUNT 4.45 10^6/uL (4.30-6.10); WHITE BLOOD COUNT 8.5 10^3/uL (4.0-10.0)
[2020-12-13 12:32] LABS: BLOOD UREA NITROGEN 31 MG/DL (7-18); CARBON DIOXIDE LEVEL 29 MEQ/L (21-32); CHLORIDE LEVEL 107 MEQ/L (98-107); CREATININE FOR GFR 0.98 MG/DL (0.70-1.30); GLOMERULAR FILTRATION RATE > 60.0 (>35); GLUCOSE, FASTING 87 MG/DL (70-100); POTASSIUM SERUM 4.6 MEQ/L (3.5-5.1); SODIUM LEVEL 141 MEQ/L (136-145)
[2020-12-13 12:33] LABS: ALBUMIN 3.8 GM/DL (3.2-5.2); ALT/SGPT 11 U/L (12-78); BILIRUBIN,TOTAL 1.2 MG/DL (0.2-1.0); CALCIUM LEVEL 9.4 MG/DL (8.8-10.2); CHOLESTEROL LEVEL 208 MG/DL (<200); CHOLESTEROL RISK RATIO 3.525 (<5); HDL CHOLESTEROL 59 MG/DL (>40); LDL CHOLESTEROL 133 MG/DL (<100); MAGNESIUM LEVEL 2.4 MG/DL (1.8-2.4); NON-HDL-C 149 MG/DL; TOTAL PROTEIN 6.9 GM/DL (6.4-8.2); TRIGLYCERIDES LEVEL 82 MG/DL (<150)
== END ==
LOC: M LABDRAWC 11:10
PROVIDERS: ATTEND Internal Medicine
DX: I95.9 Hypotension, unspecified (principal); E78.00 Pure hypercholesterolemia, unspecified

== ENCOUNTER → 2021-01-17 | Outpatient (CLI) | payer MEDICARE ==
--- NOTE | 2021-01-17 10:22 | REP ---
INDICATION: FX PART OF R FEMUR NECK. COMPARISON: 11/17/2020 TECHNIQUE: AP pelvis FINDINGS: There is no significant change from the prior exam. The impacted fracture of the right femoral neck is unchanged. There is bilateral hip degenerative change status quo. No acute fracture, dislocation, or subluxation is identified. IMPRESSION: No evidence of significant change <Electronically signed by Morales Valdez > 01/17/21 [id number]
== END ==
LOC: M SOG 10:01
PROVIDERS: ATTEND Orthopaedic Surgery Adult Reconstructive Orthopaedic Surgery
DX: S72.001D Fracture of unspecified part of neck of right femur, subsequent encounter for closed fracture with routine healing (principal)

== ENCOUNTER → 2021-02-16 | Outpatient (REF) | payer MEDICARE ==
[2021-02-16 11:27] LABS: BASO # 0.1 10^3/uL (0.0-0.2); BASO % 0.7 % (0.0-1.0); EOS # 0.2 10^3/uL (0.0-0.5); EOS % 2.4 % (0.0-3.0); HEMATOCRIT 44.1 % (42.0-52.0); HEMOGLOBIN 14.2 g/dl (13.5-17.5); LYMPH # 2.4 10^3/uL (1.5-5.0); LYMPH % 27.2 % (24.0-44.0); MEAN CORPUSCULAR HEMOGLOBIN 30.9 pg (27.0-33.0); MEAN CORPUSCULAR HGB CONC 32.2 g/dl (32.0-36.5); MEAN CORPUSCULAR VOLUME 95.9 fl (80.0-96.0); MONO # 0.7 10^3/uL (0.0-0.8); MONO % 8.5 % (2.0-8.0); NEUTROPHILS # 5.3 10^3/uL (1.5-8.5); NEUTROPHILS % 60.6 % (36.0-66.0); PLATELET COUNT, AUTOMATED 267 10^3/uL (150-450); WHITE BLOOD COUNT 8.7 10^3/uL (4.0-10.0)
[2021-02-16 12:12] LABS: ALBUMIN 3.5 GM/DL (3.2-5.2); ALT/SGPT 14 U/L (12-78); BILIRUBIN,TOTAL 1.3 MG/DL (0.2-1.0); BLOOD UREA NITROGEN 29 MG/DL (7-18); CALCIUM LEVEL 9.6 MG/DL (8.8-10.2); CARBON DIOXIDE LEVEL 29 MEQ/L (21-32); CHLORIDE LEVEL 106 MEQ/L (98-107); CREATININE FOR GFR 1.06 MG/DL (0.70-1.30); GLOMERULAR FILTRATION RATE > 60.0 (>35); GLUCOSE, FASTING 89 MG/DL (70-100); MAGNESIUM LEVEL 2.5 MG/DL (1.8-2.4); POTASSIUM SERUM 4.3 MEQ/L (3.5-5.1); SODIUM LEVEL 142 MEQ/L (136-145); TOTAL PROTEIN 6.8 GM/DL (6.4-8.2)
== END ==
LOC: M LAB REF 11:13 → M LABDRAWC 11:13
PROVIDERS: ATTEND Internal Medicine
DX: E78.00 Pure hypercholesterolemia, unspecified (principal); I95.9 Hypotension, unspecified

== ENCOUNTER → 2021-08-06 | Outpatient (REF) | payer MEDICARE ==
[~2021-08-06] MED LIST changes: -D31000TA2 PO; +VITA100093 PO
[2021-08-07 11:25] LABS: HEMOGLOBIN 14.7 g/dl (13.5-17.5); MEAN CORPUSCULAR HEMOGLOBIN 30.3 pg (27.0-33.0); MEAN CORPUSCULAR VOLUME 94.8 fl (80.0-96.0); PLATELET COUNT, AUTOMATED 256 10^3/uL (150-450); RED BLOOD COUNT 4.85 10^6/uL (4.30-6.10); WHITE BLOOD COUNT 9.3 10^3/uL (4.0-10.0)
[2021-08-07 13:40] LABS: ALBUMIN 3.7 GM/DL (3.2-5.2); CALCIUM LEVEL 9.1 MG/DL (8.8-10.2); CREATININE FOR GFR 1.29 MG/DL (0.70-1.30); GLOMERULAR FILTRATION RATE 56.5 (>35); POTASSIUM SERUM 6.3 MEQ/L (3.5-5.1); THYROID STIMULATING HORMONE 1.95 uIU/ML (0.358-3.740); TOTAL PROTEIN 7.4 GM/DL (6.4-8.2)
== END ==
LOC: M LABDRAWC 11:05
PROVIDERS: ATTEND Internal Medicine
DX: G20 Parkinson's disease (principal); E07.9 Disorder of thyroid, unspecified

== ENCOUNTER → 2021-08-08 | Outpatient (REF) | payer MEDICARE | LOC: M LABDRAWC 11:12 | PROVIDERS: ATTEND Internal Medicine | DX: I95.1 Orthostatic hypotension (principal) ==

== ENCOUNTER → 2021-08-27 | Outpatient (CLI) | payer MEDICARE ==
[~2021-08-27] MED LIST changes: +BARIUM SULFATE 700 MG TABLET (E-Z-DISK) As Ordered ONE; +E-Z-PAQUE 96% w/w SUSP 176GM BTL As Ordered ONE; +VARIBAR NECTAR 40% w/v 240ML SUSP BTL As Ordered ONE; +VARIBAR PUDDING 40% w/v 230ML TUBE As Ordered ONE
== END ==
LOC: M RAD 10:29
PROVIDERS: ATTEND Internal Medicine
DX: G20 Parkinson's disease (principal); R49.0 Dysphonia; R13.10 Dysphagia, unspecified

== ENCOUNTER 2021-09-26 13:00 | Outpatient (RCR) | payer MEDICARE ==
[~2021-09-26 13:00] MED LIST changes: -BARIUM SULFATE 700 MG TABLET (E-Z-DISK) As Ordered ONE; -E-Z-PAQUE 96% w/w SUSP 176GM BTL As Ordered ONE; -VARIBAR NECTAR 40% w/v 240ML SUSP BTL As Ordered ONE; -VARIBAR PUDDING 40% w/v 230ML TUBE As Ordered ONE
== END 2021-10-06 ==
LOC: M ST 13:00
PROVIDERS: ATTEND Internal Medicine
DX: R13.10 Dysphagia, unspecified (principal); G20 Parkinson's disease

== ENCOUNTER 2021-10-12 13:02 | Outpatient (RCR) | payer MEDICARE | END 2021-11-06 | LOC: M ST 13:02 | PROVIDERS: ATTEND Internal Medicine | DX: G20 Parkinson's disease (principal); R13.10 Dysphagia, unspecified ==

== ENCOUNTER → 2022-03-29 | Outpatient (REF) | payer MEDICARE ==
[2022-03-29 11:52] LABS: BASO # 0.1 10^3/uL (0.0-0.2); BASO % 0.7 % (0.0-1.0); EOS # 0.1 10^3/uL (0.0-0.5); EOS % 0.8 % (0.0-3.0); HEMATOCRIT 46.5 % (42.0-52.0); HEMOGLOBIN 15.2 g/dl (13.5-17.5); LYMPH # 2.1 10^3/uL (1.5-5.0); MEAN CORPUSCULAR HEMOGLOBIN 31.1 pg (27.0-33.0); MEAN CORPUSCULAR HGB CONC 32.7 g/dl (32.0-36.5); MEAN CORPUSCULAR VOLUME 95.1 fl (80.0-96.0); MONO # 0.7 10^3/uL (0.0-0.8); MONO % 8.1 % (2.0-8.0); NEUTROPHILS # 5.9 10^3/uL (1.5-8.5); NEUTROPHILS % 66.1 % (36.0-66.0); PLATELET COUNT, AUTOMATED 246 10^3/uL (150-450); RED BLOOD COUNT 4.89 10^6/uL (4.30-6.10); WHITE BLOOD COUNT 8.9 10^3/uL (4.0-10.0)
[2022-03-29 12:43] LABS: ALBUMIN 3.8 GM/DL (3.2-5.2); ALT/SGPT 12 U/L (12-78); BILIRUBIN,TOTAL 1.5 MG/DL (0.2-1.0); BLOOD UREA NITROGEN 28 MG/DL (7-18); CALCIUM LEVEL 9.4 MG/DL (8.8-10.2); CARBON DIOXIDE LEVEL 30 MEQ/L (21-32); CHLORIDE LEVEL 106 MEQ/L (98-107); CREATININE FOR GFR 1.14 MG/DL (0.70-1.30); GLOMERULAR FILTRATION RATE > 60.0 (>35); GLUCOSE, FASTING 85 MG/DL (70-100); POTASSIUM SERUM 4.3 MEQ/L (3.5-5.1); SODIUM LEVEL 140 MEQ/L (136-145); TOTAL PROTEIN 6.8 GM/DL (6.4-8.2)
[2022-03-29 13:24] LABS: TOTAL 25(OH) VITAMIN D 36.3 NG/ML (30.0-100.0)
== END ==
LOC: M LABDRAWC 11:15
PROVIDERS: ATTEND Internal Medicine
DX: E78.00 Pure hypercholesterolemia, unspecified (principal); I95.9 Hypotension, unspecified; Z13.89 Encounter for screening for other disorder; Z79.899 Other long term (current) drug therapy

== ENCOUNTER → 2022-11-21 | Outpatient (REF) | payer MEDICARE ==
[~2022-11-21] MED LIST changes: -ATRO1OPD SL; +ATRO2DRO4 SL
[2022-11-21 17:36] LABS: BASO # 0.1 10^3/uL (0.0-0.2); BASO % 0.5 % (0.0-1.0); EOS # 0.1 10^3/uL (0.0-0.5); EOS % 0.6 % (0.0-3.0); HEMATOCRIT 44.1 % (42.0-52.0); HEMOGLOBIN 14.3 g/dl (13.5-17.5); LYMPH # 1.4 10^3/uL (1.5-5.0); LYMPH % 14.5 % (24.0-44.0); MEAN CORPUSCULAR HEMOGLOBIN 31.2 pg (27.0-33.0); MEAN CORPUSCULAR HGB CONC 32.4 g/dl (32.0-36.5); MEAN CORPUSCULAR VOLUME 96.1 fl (80.0-96.0); MONO # 0.9 10^3/uL (0.0-0.8); MONO % 9.3 % (2.0-8.0); NEUTROPHILS # 7.1 10^3/uL (1.5-8.5); NEUTROPHILS % 74.5 % (36.0-66.0); PLATELET COUNT, AUTOMATED 249 10^3/uL (150-450); RED BLOOD COUNT 4.59 10^6/uL (4.30-6.10); WHITE BLOOD COUNT 9.6 10^3/uL (4.0-10.0)
[2022-11-21 17:41] LABS: CALCIUM LEVEL 8.6 MG/DL (8.3-10.6); CREATININE FOR GFR 1.23 MG/DL (0.70-1.30); GLOMERULAR FILTRATION RATE 59.5 (>35); POTASSIUM SERUM 4.3 MMOL/L (3.5-5.1)
== END ==
LOC: M LABDRAWC 17:00
PROVIDERS: ATTEND Internal Medicine
DX: I95.9 Hypotension, unspecified (principal)

== ENCOUNTER 2024-07-16 09:28 | Emergency (ER) | payer MEDICARE ==
[~2024-07-16] VITALS: Ht 182.9 cm; Wt 69.5 kg
[~2024-07-16 09:28] MED LIST changes: -ASPI-161 PO; +ASPI-615 PO
[2024-07-16 10:08] LABS: BASO # 0.1 10^3/uL (0.0-0.2); BASO % 0.6 % (0.0-1.0); EOS # 0.1 10^3/uL (0.0-0.5); EOS % 1.6 % (0.0-3.0); HEMATOCRIT 45.1 % (42.0-52.0); HEMOGLOBIN 14.8 g/dl (13.5-17.5); LYMPH # 1.7 10^3/uL (1.5-5.0); LYMPH % 19.3 % (24.0-44.0); MEAN CORPUSCULAR HEMOGLOBIN 31.2 pg (27.0-33.0); MEAN CORPUSCULAR HGB CONC 32.8 g/dl (32.0-36.5); MEAN CORPUSCULAR VOLUME 95.1 fl (80.0-96.0); MONO # 0.7 10^3/uL (0.0-0.8); MONO % 8.1 % (2.0-8.0); NEUTROPHILS % 69.8 % (36.0-66.0); PLATELET COUNT, AUTOMATED 270 10^3/uL (150-450); RED BLOOD COUNT 4.74 10^6/uL (4.30-6.10); WHITE BLOOD COUNT 8.6 10^3/uL (4.0-10.0)
[2024-07-16 10:24] LABS: ALBUMIN 3.5 G/DL (3.2-5.2); ALKALINE PHOSPHATASE 70 U/L (40-129); ALT/SGPT < 9 U/L (7.0-40); AST/SGOT 16 U/L (<34); BILIRUBIN,DIRECT 0.3 MG/DL (<0.4); BILIRUBIN,TOTAL 1.3 MG/DL (0.3-1.2); BLOOD UREA NITROGEN 29 MG/DL (9-23); CALCIUM LEVEL 9.4 MG/DL (8.3-10.6); CARBON DIOXIDE LEVEL 26 MMOL/L (20-31); CHLORIDE LEVEL 107 MMOL/L (98-107); CK-MB VALUE MASS < 1.0 NG/ML (<3.6); CREATININE FOR GFR 0.97 MG/DL (0.70-1.30); GLOMERULAR FILTRATION RATE > 60.0 (>35); GLUCOSE, FASTING 98 MG/DL (74-106); POTASSIUM SERUM 4.8 MMOL/L (3.5-5.1); SODIUM LEVEL 143 MMOL/L (136-145); TOTAL PROTEIN 6.7 G/DL (5.7-8.2)
[2024-07-16 10:28] LABS: THYROID STIMULATING HORMONE 5.636 uIU/ML (0.55-4.78)
[2024-07-16 10:33] LABS: CPK CREATINE PHOSPHOKINASE 27 U/L (46-171)
[2024-07-16 12:53] VITALS: BP 147/72; TEMP 97.6; O2SAT 96
== END 2024-07-16 16:25 | disposition home or self-care (01) ==
LOC: EDBD 09:28 → M ED 09:28
DX: R55 Syncope and collapse (principal); I44.0 Atrioventricular block, first degree; G20.A1 Parkinson's disease without dyskinesia, without mention of fluctuations; Z79.1 Long term (current) use of non-steroidal anti-inflammatories (NSAID); Z79.899 Other long term (current) drug therapy

== ENCOUNTER → 2024-08-25 | Outpatient (REF) ==
[2024-08-25 08:48] LABS: HEMATOCRIT 43.6 % (42.0-52.0); MEAN CORPUSCULAR HEMOGLOBIN 30.4 pg (27.0-33.0); MEAN CORPUSCULAR HGB CONC 32.1 g/dl (32.0-36.5); MEAN CORPUSCULAR VOLUME 94.6 fl (80.0-96.0); PLATELET COUNT, AUTOMATED 256 10^3/uL (150-450); RED BLOOD COUNT 4.61 10^6/uL (4.30-6.10); WHITE BLOOD COUNT 8.8 10^3/uL (4.0-10.0)
[2024-08-25 09:07] LABS: BLOOD UREA NITROGEN 25 MG/DL (9-23); CALCIUM LEVEL 9.2 MG/DL (8.3-10.6); CARBON DIOXIDE LEVEL 27 MMOL/L (20-31); CHLORIDE LEVEL 107 MMOL/L (98-107); CREATININE FOR GFR 1.01 MG/DL (0.70-1.30); GLOMERULAR FILTRATION RATE > 60.0 (>35); GLUCOSE, FASTING 86 MG/DL (74-106); POTASSIUM SERUM 4.2 MMOL/L (3.5-5.1); SODIUM LEVEL 145 MMOL/L (136-145)
== END ==
PROVIDERS: ATTEND Physician Assistant
DX: G20.C Parkinsonism, unspecified (principal)

== ENCOUNTER → 2024-09-01 | Outpatient (REF) ==
[2024-09-01 09:30] LABS: HEMATOCRIT 42.1 % (42.0-52.0); HEMOGLOBIN 13.6 g/dl (13.5-17.5); MEAN CORPUSCULAR HGB CONC 32.3 g/dl (32.0-36.5); MEAN CORPUSCULAR VOLUME 95.9 fl (80.0-96.0); PLATELET COUNT, AUTOMATED 244 10^3/uL (150-450); RED BLOOD COUNT 4.39 10^6/uL (4.30-6.10); WHITE BLOOD COUNT 9.2 10^3/uL (4.0-10.0)
[2024-09-01 09:53] LABS: BLOOD UREA NITROGEN 28 MG/DL (9-23); CALCIUM LEVEL 9.1 MG/DL (8.3-10.6); CARBON DIOXIDE LEVEL 26 MMOL/L (20-31); CHLORIDE LEVEL 108 MMOL/L (98-107); CREATININE FOR GFR 0.87 MG/DL (0.70-1.30); GLOMERULAR FILTRATION RATE > 60.0 (>35); GLUCOSE, FASTING 85 MG/DL (74-106); POTASSIUM SERUM 3.7 MMOL/L (3.5-5.1); SODIUM LEVEL 146 MMOL/L (136-145)
== END ==
PROVIDERS: ATTEND Physician Assistant
DX: G20.A1 Parkinson's disease without dyskinesia, without mention of fluctuations (principal)

== ENCOUNTER → 2024-09-20 | Outpatient (REF) ==
[2024-09-20 08:53] LABS: HEMATOCRIT 44.4 % (42.0-52.0); MEAN CORPUSCULAR HGB CONC 31.5 g/dl (32.0-36.5); MEAN CORPUSCULAR VOLUME 98.2 fl (80.0-96.0); PLATELET COUNT, AUTOMATED 253 10^3/uL (150-450); RED BLOOD COUNT 4.52 10^6/uL (4.30-6.10); WHITE BLOOD COUNT 10.4 10^3/uL (4.0-10.0)
[2024-09-20 09:24] LABS: CALCIUM LEVEL 9.2 MG/DL (8.3-10.6); CREATININE FOR GFR 0.94 MG/DL (0.70-1.30); GLOMERULAR FILTRATION RATE 78.5 (>35); POTASSIUM SERUM 4.3 MMOL/L (3.5-5.1)
== END ==
PROVIDERS: ATTEND Internal Medicine
DX: R05.9 Cough, unspecified (principal)

== ENCOUNTER → 2024-09-27 | Outpatient (REF) ==
[2024-09-27 11:31] LABS: HEMATOCRIT 45.1 % (42.0-52.0); HEMOGLOBIN 14.3 g/dl (13.5-17.5); MEAN CORPUSCULAR HEMOGLOBIN 31.2 pg (27.0-33.0); MEAN CORPUSCULAR HGB CONC 31.7 g/dl (32.0-36.5); MEAN CORPUSCULAR VOLUME 98.5 fl (80.0-96.0); PLATELET COUNT, AUTOMATED 256 10^3/uL (150-450); RED BLOOD COUNT 4.58 10^6/uL (4.30-6.10); WHITE BLOOD COUNT 8.9 10^3/uL (4.0-10.0)
[2024-09-27 11:54] LABS: CALCIUM LEVEL 8.9 MG/DL (8.3-10.6); CREATININE FOR GFR 0.96 MG/DL (0.70-1.30); GLOMERULAR FILTRATION RATE 76.5 (>35)
== END ==
PROVIDERS: ATTEND Internal Medicine
DX: G20.A1 Parkinson's disease without dyskinesia, without mention of fluctuations (principal)

== ENCOUNTER → 2024-10-27 | Outpatient (REF) ==
[2024-10-27 08:46] LABS: HEMATOCRIT 42.7 % (42.0-52.0); HEMOGLOBIN 13.8 g/dl (13.5-17.5); MEAN CORPUSCULAR HEMOGLOBIN 31.4 pg (27.0-33.0); MEAN CORPUSCULAR HGB CONC 32.3 g/dl (32.0-36.5); MEAN CORPUSCULAR VOLUME 97.3 fl (80.0-96.0); PLATELET COUNT, AUTOMATED 218 10^3/uL (150-450); RED BLOOD COUNT 4.39 10^6/uL (4.30-6.10); WHITE BLOOD COUNT 9.5 10^3/uL (4.0-10.0)
[2024-10-27 09:18] LABS: CALCIUM LEVEL 9.1 MG/DL (8.3-10.6); CREATININE FOR GFR 0.98 MG/DL (0.70-1.30); GLOMERULAR FILTRATION RATE 74.6 (>35); POTASSIUM SERUM 3.9 MMOL/L (3.5-5.1)
== END ==
PROVIDERS: ATTEND Internal Medicine
DX: G20.A1 Parkinson's disease without dyskinesia, without mention of fluctuations (principal)

== ENCOUNTER → 2024-11-29 | Outpatient (REF) | payer MEDICARE | PROVIDERS: ATTEND Internal Medicine | DX: G20.A1 Parkinson's disease without dyskinesia, without mention of fluctuations (principal); Z53.8 Procedure and treatment not carried out for other reasons ==

== ENCOUNTER → 2024-12-27 | Outpatient (REF) | payer MEDICARE ==
[2024-12-27 10:45] LABS: CALCIUM LEVEL 9.4 MG/DL (8.3-10.6); CARBON DIOXIDE LEVEL 25.0 MMOL/L (20-31); CHLORIDE LEVEL 103.0 MMOL/L (98-107); CREATININE FOR GFR 0.93 MG/DL (0.70-1.30); GLOMERULAR FILTRATION RATE 79.5 (>35); POTASSIUM SERUM 4.6 MMOL/L (3.5-5.1); SODIUM LEVEL 143.0 MMOL/L (136-145)
== END ==
PROVIDERS: ATTEND Internal Medicine
DX: G20.A1 Parkinson's disease without dyskinesia, without mention of fluctuations (principal)

== ENCOUNTER → 2024-12-29 | Outpatient (REF) | payer MEDICARE ==
[2024-12-29 08:32] LABS: PLATELET COUNT, AUTOMATED 247 10^3/uL (150-450)
== END ==
PROVIDERS: ATTEND Physician Assistant
DX: G20.A1 Parkinson's disease without dyskinesia, without mention of fluctuations (principal); Z79.899 Other long term (current) drug therapy

== ENCOUNTER → 2025-01-24 | Outpatient (REF) | payer MEDICARE | PROVIDERS: ATTEND Physician Assistant | DX: D72.829 Elevated white blood cell count, unspecified (principal); G20.A1 Parkinson's disease without dyskinesia, without mention of fluctuations ==

== ENCOUNTER → 2025-01-24 | Outpatient (REF) | payer MEDICARE ==
[2025-01-25 14:15] LABS: APPEARANCE, URINE HAZY (CLEAR); BACTERIA, URINE AUTO NEGATIVE (NEGATIVE); BILIRUBIN, URINE AUTO NEGATIVE (NEGATIVE); BLOOD, URINE BLOOD 2+ (NEGATIVE); CALCIUM OXALATE CRYSTALS SMALL; GLUCOSE, URINE (UA) AUTO NEGATIVE (NEGATIVE); KETONE, URINE AUTO TRACE mg/dL (NEGATIVE); LEUKOCYTE ESTERASE, URINE AUTO NEGATIVE (NEGATIVE); MUCUS, URINE SMALL (NEGATIVE); NITRITE, URINE AUTO NEGATIVE (NEGATIVE); PROTEIN, URINE AUTO NEGATIVE (NEGATIVE); RBC, URINE AUTO 37 /HPF (0-3); SPECIFIC GRAVITY URINE AUTO 1.019 (1.002-1.035); SQUAMOUS EPITHELIAL CELL UR AU 0 /HPF (0-6); UROBILINOGEN, URINE AUTO 0.2 mg/dL (0.0-2.0); WBC, URINE AUTO 1 /HPF (0-3)
== END ==
PROVIDERS: ATTEND Internal Medicine
DX: D72.829 Elevated white blood cell count, unspecified (principal)

== ENCOUNTER → 2025-01-24 | Outpatient (REF) | payer MEDICARE ==
[2025-01-24 11:36] LABS: PLATELET COUNT, AUTOMATED 185 10^3/uL (150-450)
[2025-01-24 12:16] LABS: CALCIUM LEVEL 9.4 MG/DL (8.3-10.6); CARBON DIOXIDE LEVEL 24.0 MMOL/L (20-31); CHLORIDE LEVEL 106.0 MMOL/L (98-107); CREATININE FOR GFR 2.4 MG/DL (0.70-1.30); GLOMERULAR FILTRATION RATE 25.5 (>35); POTASSIUM SERUM 4.3 MMOL/L (3.5-5.1); SODIUM LEVEL 144.0 MMOL/L (136-145)
== END ==
PROVIDERS: ATTEND Internal Medicine
DX: G20.A1 Parkinson's disease without dyskinesia, without mention of fluctuations (principal)

== ENCOUNTER → 2025-01-25 | Outpatient (REF) | payer MEDICARE ==
[2025-01-25 14:24] LABS: PLATELET COUNT, AUTOMATED 201 10^3/uL (150-450)
[2025-01-25 14:51] LABS: CALCIUM LEVEL 9.0 MG/DL (8.3-10.6); CARBON DIOXIDE LEVEL 27.0 MMOL/L (20-31); CHLORIDE LEVEL 108.0 MMOL/L (98-107); CREATININE FOR GFR 1.43 MG/DL (0.70-1.30); GLOMERULAR FILTRATION RATE 47.4 (>35); POTASSIUM SERUM 5.0 MMOL/L (3.5-5.1); SODIUM LEVEL 146.0 MMOL/L (136-145)
== END ==
PROVIDERS: ATTEND Internal Medicine
DX: D72.829 Elevated white blood cell count, unspecified (principal)

== ENCOUNTER → 2025-01-28 | Outpatient (REF) | payer MEDICARE | PROVIDERS: ATTEND Physician Assistant | DX: R14.0 Abdominal distension (gaseous) (principal) ==

== ENCOUNTER → 2025-01-28 | Outpatient (REF) | payer MEDICARE ==
[2025-01-28 09:20] LABS: PLATELET COUNT, AUTOMATED 260 10^3/uL (150-450)
[2025-01-28 09:58] LABS: CALCIUM LEVEL 9.2 MG/DL (8.3-10.6); CARBON DIOXIDE LEVEL 29.0 MMOL/L (20-31); CHLORIDE LEVEL 105.0 MMOL/L (98-107); CREATININE FOR GFR 0.97 MG/DL (0.70-1.30); GLOMERULAR FILTRATION RATE 75.6 (>35); POTASSIUM SERUM 3.9 MMOL/L (3.5-5.1); SODIUM LEVEL 145.0 MMOL/L (136-145)
== END ==
PROVIDERS: ATTEND Internal Medicine
DX: N18.9 Chronic kidney disease, unspecified (principal)

== ENCOUNTER → 2025-01-31 | Outpatient (REF) | payer MEDICARE ==
[2025-01-31 11:49] LABS: PLATELET COUNT, AUTOMATED 330 10^3/uL (150-450)
[2025-01-31 12:16] LABS: CALCIUM LEVEL 8.9 MG/DL (8.3-10.6); CARBON DIOXIDE LEVEL 28.0 MMOL/L (20-31); CHLORIDE LEVEL 105.0 MMOL/L (98-107); CREATININE FOR GFR 0.83 MG/DL (0.70-1.30); GLOMERULAR FILTRATION RATE 84.7 (>35); POTASSIUM SERUM 4.6 MMOL/L (3.5-5.1); SODIUM LEVEL 143.0 MMOL/L (136-145)
== END ==
PROVIDERS: ATTEND Internal Medicine
DX: R19.8 Other specified symptoms and signs involving the digestive system and abdomen (principal); R50.9 Fever, unspecified

== ENCOUNTER → 2025-01-31 | Outpatient (REF) | payer MEDICARE | PROVIDERS: ATTEND Internal Medicine | DX: R50.9 Fever, unspecified (principal) ==

== ENCOUNTER → 2025-02-04 | Outpatient (REF) | payer MEDICARE ==
[2025-02-04 10:20] LABS: PLATELET COUNT, AUTOMATED 305 10^3/uL (150-450)
[2025-02-04 10:35] LABS: CALCIUM LEVEL 9.2 MG/DL (8.3-10.6); CARBON DIOXIDE LEVEL 28.0 MMOL/L (20-31); CHLORIDE LEVEL 103.0 MMOL/L (98-107); CREATININE FOR GFR 0.87 MG/DL (0.70-1.30); GLOMERULAR FILTRATION RATE 83.5 (>35); POTASSIUM SERUM 4.8 MMOL/L (3.5-5.1); SODIUM LEVEL 142.0 MMOL/L (136-145)
== END ==
PROVIDERS: ATTEND Internal Medicine
DX: D72.829 Elevated white blood cell count, unspecified (principal)

== ENCOUNTER → 2025-02-11 | Outpatient (REF) | payer MEDICARE ==
[2025-02-11 12:10] LABS: PLATELET COUNT, AUTOMATED 312 10^3/uL (150-450)
[2025-02-11 12:32] LABS: CALCIUM LEVEL 9.0 MG/DL (8.3-10.6); CARBON DIOXIDE LEVEL 28.0 MMOL/L (20-31); CHLORIDE LEVEL 104.0 MMOL/L (98-107); CREATININE FOR GFR 0.98 MG/DL (0.70-1.30); GLOMERULAR FILTRATION RATE 74.6 (>35); POTASSIUM SERUM 4.2 MMOL/L (3.5-5.1); SODIUM LEVEL 144.0 MMOL/L (136-145)
== END ==
PROVIDERS: ATTEND Internal Medicine
DX: D72.829 Elevated white blood cell count, unspecified (principal)

== ENCOUNTER → 2025-03-04 | Outpatient (REF) | PROVIDERS: ATTEND Internal Medicine | DX: E87.6 Hypokalemia (principal); Z53.8 Procedure and treatment not carried out for other reasons ==

== ENCOUNTER → 2025-03-07 | Outpatient (REF) | payer MEDICARE ==
[2025-03-07 11:50] LABS: CALCIUM LEVEL 8.6 MG/DL (8.3-10.6); CARBON DIOXIDE LEVEL 28.0 MMOL/L (20-31); CHLORIDE LEVEL 105.0 MMOL/L (98-107); CREATININE FOR GFR 1.0 MG/DL (0.70-1.30); GLOMERULAR FILTRATION RATE 72.8 (>35); POTASSIUM SERUM 3.8 MMOL/L (3.5-5.1); SODIUM LEVEL 142.0 MMOL/L (136-145)
== END ==
PROVIDERS: ATTEND Internal Medicine
DX: E87.5 Hyperkalemia (principal)

== ENCOUNTER → 2025-03-21 | Outpatient (REF) | payer MEDICARE ==
[2025-03-21 12:57] LABS: PLATELET COUNT, AUTOMATED 236 10^3/uL (150-450)
[2025-03-21 13:36] LABS: CALCIUM LEVEL 8.6 MG/DL (8.3-10.6); CARBON DIOXIDE LEVEL 27.0 MMOL/L (20-31); CHLORIDE LEVEL 106.0 MMOL/L (98-107); CREATININE FOR GFR 1.17 MG/DL (0.70-1.30); GLOMERULAR FILTRATION RATE 60.3 (>35); POTASSIUM SERUM 3.9 MMOL/L (3.5-5.1); SODIUM LEVEL 146.0 MMOL/L (136-145)
== END ==
PROVIDERS: ATTEND Internal Medicine
DX: G20.A1 Parkinson's disease without dyskinesia, without mention of fluctuations (principal); Z79.899 Other long term (current) drug therapy

== ENCOUNTER → 2025-04-20 | Outpatient (REF) | payer MEDICARE ==
[2025-04-20 10:56] LABS: PLATELET COUNT, AUTOMATED 259 10^3/uL (150-450)
[2025-04-20 11:26] LABS: CALCIUM LEVEL 8.8 MG/DL (8.3-10.6); CARBON DIOXIDE LEVEL 25.0 MMOL/L (20-31); CHLORIDE LEVEL 109.0 MMOL/L (98-107); CREATININE FOR GFR 0.92 MG/DL (0.70-1.30); GLOMERULAR FILTRATION RATE 80.5 (>35); POTASSIUM SERUM 4.0 MMOL/L (3.5-5.1); SODIUM LEVEL 147.0 MMOL/L (136-145)
== END ==
PROVIDERS: ATTEND Internal Medicine
DX: G20.A1 Parkinson's disease without dyskinesia, without mention of fluctuations (principal); Z79.899 Other long term (current) drug therapy

== ENCOUNTER → 2025-05-20 | Outpatient (REF) ==
[2025-05-20 17:48] LABS: PLATELET COUNT, AUTOMATED 253 10^3/uL (150-450)
[2025-05-20 18:27] LABS: AMORPHOUS SEDIMENT SMALL (NEGATIVE); APPEARANCE, URINE TURBID (CLEAR); BACTERIA, URINE AUTO 1+ (NEGATIVE); BILIRUBIN, URINE AUTO NEGATIVE (NEGATIVE); BLOOD, URINE BLOOD 2+ (NEGATIVE); GLUCOSE, URINE (UA) AUTO NEGATIVE (NEGATIVE); KETONE, URINE AUTO NEGATIVE (NEGATIVE); LEUKOCYTE ESTERASE, URINE AUTO 3+ (NEGATIVE); MUCUS, URINE SMALL (NEGATIVE); NITRITE, URINE AUTO NEGATIVE (NEGATIVE); PROTEIN, URINE AUTO 2+ mg/dL (NEGATIVE); RBC, URINE AUTO 10 /HPF (0-3); SPECIFIC GRAVITY URINE AUTO 1.019 (1.002-1.035); SQUAMOUS EPITHELIAL CELL UR AU 1 /HPF (0-6); TRIPLE PHOSPHATE CRYSTALS SMALL; UROBILINOGEN, URINE AUTO 0.2 mg/dL (0.0-2.0); WBC, URINE AUTO 43 /HPF (0-3)
[2025-05-20 18:29] LABS: CALCIUM LEVEL 8.2 MG/DL (8.3-10.6); CARBON DIOXIDE LEVEL 26.0 MMOL/L (20-31); CHLORIDE LEVEL 105.0 MMOL/L (98-107); CREATININE FOR GFR 0.97 MG/DL (0.70-1.30); GLOMERULAR FILTRATION RATE 75.6 (>35); POTASSIUM SERUM 6.0 MMOL/L (3.5-5.1); SODIUM LEVEL 141.0 MMOL/L (136-145)
== END ==
PROVIDERS: ATTEND Internal Medicine
DX: N39.0 Urinary tract infection, site not specified (principal)

== ENCOUNTER → 2025-05-23 | Outpatient (REF) | payer MEDICARE ==
[2025-05-23 13:07] LABS: PLATELET COUNT, AUTOMATED 258 10^3/uL (150-450)
[2025-05-23 13:36] LABS: CALCIUM LEVEL 8.5 MG/DL (8.3-10.6); CARBON DIOXIDE LEVEL 28.0 MMOL/L (20-31); CHLORIDE LEVEL 103.0 MMOL/L (98-107); CREATININE FOR GFR 0.99 MG/DL (0.70-1.30); GLOMERULAR FILTRATION RATE 73.7 (>35); POTASSIUM SERUM 3.9 MMOL/L (3.5-5.1); SODIUM LEVEL 143.0 MMOL/L (136-145)
== END ==
PROVIDERS: ATTEND Internal Medicine
DX: G20.A1 Parkinson's disease without dyskinesia, without mention of fluctuations (principal)

== ENCOUNTER → 2025-06-05 | Outpatient (REF) | payer MEDICARE | DX: R53.83 Other fatigue (principal) ==